=== PATIENT | female | born 1980 | race Caucasian/White ===

== ENCOUNTER 2017-02-23 21:48 | Emergency (ER) | payer OTHER ==
[~2017-02-23] VITALS: Ht 160 cm; Wt 103.9 kg
[2017-02-24 00:31] LABS: HEMATOCRIT 34.7 % (36.0-46.0); MCH 28.6 PG (29.0-34.0); MCHC 32.9 G/DL (30.0-36.0); MCV 87.2 FL (83-99); MEAN PLAT.VOLUME 9.4 uM^3 (9.5-12.4); PLATELET COUNT 273 K/uL (156-360); RBC DIS.WIDTH-CV 12.4 % (11.8-14.6); RED BLOOD COUNT 3.98 M/uL (3.80-5.20); WHITE BLOOD COUNT 5.5 K/uL (4.1-10.2)
[2017-02-24 00:35] LABS: INTER. NORMALIZED RATIO 1.2; PROTHROMBIN TIME 12.8 SEC (10.2-12.9)
[2017-02-24 00:38] LABS: PTT 26.5 SEC (25-37)
[2017-02-24 00:39] LABS: CHLORIDE 106 mEq/L (99-109); SODIUM 143 mEq/L (136-147)
[2017-02-24 00:40] LABS: GLUCOSE 94 mg/dL (70-99)
[2017-02-24 00:42] LABS: ANION GAP 10 MEQ/L (2-14)
[2017-02-24 00:44] LABS: GFR ESTIMATE (CALCULATED) > 59 mL/min/
[2017-02-24 00:45] LABS: UREA NITROGEN (BUN) 11 mg/dL (9-23)
[2017-02-24] MEDS ORDERED: LEVAQUIN750 MG PO (02:50)
[2017-02-24] MEDS ORDERED: XARELTO15 MG PO (02:50)
[2017-02-24 03:15] VITALS: BP 121/88
== END 2017-02-24 03:16 | disposition home or self-care (01) ==
LOC: EME 21:48
PROVIDERS: Physician Assistant
DX: I82.401 Acute embolism and thrombosis of unspecified deep veins of right lower extremity (principal); J18.9 Pneumonia, unspecified organism; E87.6 Hypokalemia
CPT/HCPCS: 71275; 80048; 85027; 85610; 85730; 93005; 93971; 99281; 99285; J0696; J7030; J7050

== ENCOUNTER → 2017-06-24 | Outpatient (CLI) | payer OTHER ==
[~2017-06-24] MED LIST: LEVAQUIN750 MG PO; XARELTO15 MG PO
== END | disposition home or self-care (01) ==
LOC: RES 06-21 09:00
DX: J44.9 Chronic obstructive pulmonary disease, unspecified (principal)
CPT/HCPCS: 94060; 94726; 94729